=== PATIENT | female | born 1970 | race Two or more races ===

== ENCOUNTER 2016-04-27 22:10 | Emergency (ER) | payer OTHER ==
[2016-04-28] MEDS ORDERED: ONDANSETRON 4 MG TAB.RAPDIS PO ONE (01:49)
[2016-04-28] MEDS ORDERED: MECLIZINE HCL 25 MG TABLET PO ONE (01:49)
--- NOTE | 2016-04-28 01:52 | ER Document Report ---
ED General - General Chief Complaint: Dizziness Stated Complaint: DIZZINESS Time seen by provider: 01:50 Notes: Patient is a 45-year-old female that comes emergency department for chief complaint of an episode earlier where she felt suddenly lightheaded and slightly nauseated, she states that she sat down, lay down, and then the room seemed to be spinning around her. She denies any nausea vomiting, fever or chills, headache. She states she had this similar symptom years ago. Patient does report some recent congestion and even some irritation with her ears being plugged. Patient denies any daily medications, denies any other medical history other than tubal ligation. TRAVEL OUTSIDE OF THE [place] IN LAST 30 DAYS: No - Related Data Allergies/Adverse Reactions: No Known Allergies Allergy (Verified 01/29/14 19:22) Past Medical History - General Information source: Patient - Social History Smoking Status: Never Smoker Frequency of alcohol use: None Drug Abuse: None Lives with: Family Family History: Reviewed & Not Pertinent - Past Medical History Cardiac Medical History: Pulmonary Medical History: Endocrine Medical History: GI Medical History: Reports: Hx Gastroesophageal Reflux Disease Past Surgical History: Reports: Hx Tubal Ligation - Immunizations Hx Diphtheria, Pertussis, Tetanus Vaccination: No Review of Systems - Review of Systems Constitutional: No symptoms reported EENT: No symptoms reported Cardiovascular: No symptoms reported Respiratory: No symptoms reported Gastrointestinal: See HPI Genitourinary: No symptoms reported Female Genitourinary: No symptoms reported Musculoskeletal: No symptoms reported Skin: No symptoms reported Hematologic/Lymphatic: No symptoms reported Neurological/Psychological: See HPI Physical Exam - Vital signs Vitals: Temp Pulse BP Pulse Ox 97.8 F 97 123/86 H 100 04/27/16 23:34 04/27/16 23:34 04/27/16 23:34 04/27/16 23:34 Interpretation: Normal - General General appearance: Appears well, Alert In distress: None - Smiling and well-appearing, sitting up on the bed - HEENT Head: Normocephalic, Atraumatic Eyes: Normal Conjunctiva: Normal Extraocular movements intact: Yes Eyelashes: Normal Pupils: PERRL Ears: Normal External canal: Normal Tympanic membrane: Normal Sinus: Normal Nasal: Normal Mouth/Lips: Normal Mucous membranes: Normal Pharynx: Normal Neck: Normal - Respiratory Respiratory status: No respiratory distress Chest status: Nontender Breath sounds: Normal Chest palpation: Normal - Cardiovascular Rhythm: Regular Heart sounds: Normal auscultation Murmur: No - Abdominal Inspection: Normal Distension: No distension Bowel sounds: Normal Tenderness: Nontender Organomegaly: No organomegaly - Back Back: Normal, Nontender - Extremities General upper extremity: Normal inspection, Nontender, Normal color, Normal ROM , Normal temperature General lower extremity: Normal inspection, Nontender, Normal color, Normal ROM , Normal temperature, Normal weight bearing. 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 I discussed this with patient, offered to treat with Antivert for what sounds like intermittent vertigo, patient requested that laboratory studies be performed. These were performed, found to be unremarkable, patient was given a copy of her blood work and urine. Patient's was still given Antivert, patient instructed to follow-up with primary care and return for any concerning symptoms. Patient states understanding and agreement. - Vital Signs Vital signs: Temp Pulse Resp BP Pulse Ox 98.2 F 73 18 117/67 97 04/28/16 03:33 04/28/16 03:33 04/28/16 03:33 04/28/16 03:33 04/28/16 03:33 - Laboratory Result Diagrams: 04/28/16 02:00 04/28/16 02:00 Laboratory results interpreted by me: 04/28/16 02:00 Ur Leukocyte Esterase TRACE H Discharge - Discharge Clinical Impression: Vertigo Condition: Stable Disposition: HOME, SELF-CARE Additional Instructions: Your workup and examination do not show any concerning abnormalities. Take the Antivert as directed, take Zofran if needed for nausea, follow with primary care. Return to emergency department for any concerning or worsening symptoms. Prescriptions: Meclizine HCl [Antivert 25 mg Tablet] 25 mg PO TID PRN #21 tablet PRN Reason: Ondansetron [Zofran Odt 4 mg Tablet] 1 - 2 tab PO Q4H PRN #15 tab.rapdis PRN Reason: For Nausea/Vomiting
[2016-04-28 02:16] LABS: ABSOLUTE EOSINOPHILS # (AUTO) 0.1 10^3/uL (0.0-0.6); ABSOLUTE LYMPHOCYTES (AUTO) 2.8 10^3/uL (0.5-4.7); ABSOLUTE MONOCYTES (AUTO) 0.6 10^3/uL (0.1-1.4); ABSOLUTE NEUT (AUTO) 4.7 10^3/uL (1.7-8.2); BASOPHILS % (AUTO) 0.4 % (0-2); EOSINOPHILS % (AUTO) 0.7 % (0-6); HEMATOCRIT 38.7 % (36.0-47.0); HGB HCT DIFFERENCE 0.3; LYMPHOCYTES % (AUTO) 34.4 % (13-45); MEAN CORPUSCULAR HEMOGLOBIN 29.6 pg (27.0-33.4); MEAN CORPUSCULAR HGB CONC 33.6 g/dL (32.0-36.0); MEAN CORPUSCULAR VOLUME 88 fl (80-97); MONOCYTES % (AUTO) 7.3 % (3-13); RED BLOOD COUNT 4.39 10^6/uL (3.72-5.28); RED CELL DISTRIBUTION WIDTH 13.7 % (11.5-14.0); SEGMENTED NEUTROPHILS % (AUTO) 57.2 % (42-78); WHITE BLOOD COUNT 8.2 10^3/uL (4.0-10.5)
[2016-04-28 02:27] LABS: ALANINE AMINOTRANSFERASE 40 U/L (9-52); ALBUMIN 3.8 g/dL (3.5-5.0); ALKALINE PHOSPHATASE 54 U/L (38-126); ANION GAP 9 (5-19); ASPARTATE AMINO TRANSFERASE 24 U/L (14-36); BILIRUBIN,TOTAL 0.3 mg/dL (0.2-1.3); BLOOD UREA NITROGEN 14 mg/dL (7-20); CALCIUM 9.2 mg/dL (8.4-10.2); CARBON DIOXIDE 29 mmol/L (22-30); CHLORIDE 104 mmol/L (98-107); GLUCOSE 85 mg/dL (75-110); POTASSIUM 4.6 mmol/L (3.6-5.0); SODIUM 141.5 mmol/L (137-145); TOTAL PROTEIN 7.2 g/dL (6.3-8.2)
[2016-04-28 02:40] LABS: AMORPHOUS SEDIMENT,URINE TRACE /HPF; APPEARANCE,URINE SLIGHTLY-CLOUDY; BILIRUBIN,URINE NEGATIVE (NEGATIVE); GLUCOSE, URINE NEGATIVE (NEGATIVE); KETONES,URINE NEGATIVE (NEGATIVE); LEUKOCYTE ESTERASE,URINE TRACE (NEGATIVE); NITRITE,URINE NEGATIVE (NEGATIVE); PROTEIN,URINE NEGATIVE (NEGATIVE); URINE SPECIFIC GRAVITY 1.016; UROBILINOGEN,URINE NEGATIVE mg/dL (<2.0)
[2016-04-28 03:36] VITALS: BP 117/67
== END 2016-04-28 03:37 | disposition home or self-care (01) ==
LOC: ER 22:10
DX: R42 Dizziness and giddiness (principal); R11.0 Nausea
CPT/HCPCS: 99284; 36415; 85025; 81025; 80053; 81001; S0119

== ENCOUNTER 2016-07-08 00:19 | Emergency (ER) | payer OTHER ==
--- NOTE | 2016-07-08 06:08 | ER Document Report ---
ED General - General Chief Complaint: Cough, LUNA, Sneezing Stated Complaint: COUGHING,SNEEZING,HEADACHE Mode of Arrival: Ambulatory Information source: Patient Notes: 46 y/o F presents to ED c/o runny nose, cough, congestion, and sneezing over the last three days. Denies fever, n/v, chest pain, sob, difficulty breathing or swallowing. TRAVEL OUTSIDE OF THE [place] IN LAST 30 DAYS: No - HPI Onset/Duration: Persistent Quality of pain: No pain Severity: Mild Pain Level: Denies Associated symptoms: Nonproductive cough, Rhinnorhea Similar symptoms previously: Yes Recently seen / treated by doctor: No - Related Data Allergies/Adverse Reactions: No Known Allergies Allergy (Verified 01/29/14 19:22) Past Medical History - General Information source: Patient - Social History Smoking Status: Never Smoker Frequency of alcohol use: None Drug Abuse: None Lives with: Family Family History: Reviewed & Not Pertinent Patient has suicidal ideation: No Patient has homicidal ideation: No - Past Medical History Cardiac Medical History: Pulmonary Medical History: Endocrine Medical History: Renal/ Medical History: Denies: Hx Peritoneal Dialysis GI Medical History: Reports: Hx Gastroesophageal Reflux Disease Past Surgical History: Reports: Hx Tubal Ligation - Immunizations Hx Diphtheria, Pertussis, Tetanus Vaccination: Yes Review of Systems - Review of Systems Constitutional: No symptoms reported EENT: See HPI Cardiovascular: No symptoms reported Respiratory: See HPI Gastrointestinal: No symptoms reported Genitourinary: No symptoms reported Female Genitourinary: No symptoms reported Musculoskeletal: No symptoms reported Skin: No symptoms reported Hematologic/Lymphatic: No symptoms reported Neurological/Psychological: No symptoms reported -: Yes All other systems reviewed and negative Physical Exam - Vital signs Vitals: Temp Pulse Resp BP Pulse Ox 97.8 F 76 16 100/51 L 98 07/08/16 01:03 07/08/16 01:03 07/08/16 01:03 07/08/16 01:03 07/08/16 01:03 Interpretation: Normal - General General appearance: Appears well, Alert - HEENT Head: Normocephalic, Atraumatic Eyes: Normal Conjunctiva: Normal Extraocular movements intact: Yes Eyelashes: Normal Pupils: PERRL Ears: Normal External canal: Normal Tympanic membrane: Normal Sinus: Normal. No: Tenderness Nasal: Normal, Clear rhinorrhea. No: Purulent discharge Mouth/Lips: Normal Mucous membranes: Normal, Moist Pharynx: Normal. No: Blood in hypopharynx, Erythema, Exudate, Peritonsillar abscess, Post nasal drainage, Retropharyngeal abscess, Tonsillar hypertrophy, Uvular edema, Potential airway comprom., Other Neck: Normal. No: Anterior cervical chain, Posterior cervical chain, Lymphadenopathy, Meningismus, Subcutaneous emphysema - Respiratory Respiratory status: No respiratory distress. No: Labored, Tachypnea Chest status: Nontender Breath sounds: Normal - CTAB, Nonproductive cough. No: Rhonchi, Wheezing Chest palpation: Normal - Cardiovascular Rhythm: Regular Heart sounds: Normal auscultation Murmur: No Pulses: Normal: Radial Normal capillary refill: Yes - Abdominal Inspection: Normal Distension: No distension Bowel sounds: Normal Tenderness: Nontender Organomegaly: No organomegaly - Back Back: Normal, Nontender - Extremities General upper extremity: Normal inspection, Nontender, Normal color, Normal ROM , Normal temperature General lower extremity: Normal inspection, Nontender, Normal color, Normal ROM , Normal temperature, Normal weight bearing - Neurological Neuro grossly intact: Yes Cognition: Normal Orientation: AAOx4 Baljinder Coma Scale Eye Opening: Spontaneous [place] Coma Scale Verbal: Oriented Baljinder Coma Scale Motor: Obeys Commands Baljinder Coma Scale Total: 15 Speech: Normal Motor strength normal: LUE, RUE, LLE, RLE Sensory: Normal - Psychological Associated symptoms: Normal affect, Normal mood - Skin Skin Temperature: Warm Skin Moisture: Dry Skin Color: Normal Course - Re-evaluation Re-evalutation: 07/08/16 06:10 Patient hemodynamically stable, in no distress, afebrile, nontoxic, and appears well-hydrated. Physical exam is unremarkable suggestive of uncomplicated likely viral URI at this time. Will treat symptomatically and patient appears stable for discharge and agrees with home care, follow-up with PCP, and ED return precautions. - Vital Signs Vital signs: Temp Pulse Resp BP Pulse Ox 97.8 F 79 16 103/63 98 07/08/16 05:30 07/08/16 05:30 07/08/16 05:30 07/08/16 05:30 07/08/16 05:30 Discharge - Discharge Clinical Impression: URI (upper respiratory infection) Qualifiers: URI type: unspecified URI Qualified Code(s): J06.9 - Acute upper respiratory infection, unspecified Condition: Stable Disposition: HOME, SELF-CARE Additional Instructions: UPPER RESPIRATORY ILLNESS: You have a viral infection of the respiratory passages -- a "cold." This common infection causes nasal congestion, drainage, and often sore throat and cough. It is highly contagious. The disease usually lasts about 10 to 14 days. There is no "cure" for the viral infection -- it must run its course. If there is a complication, such as bacterial infection in the nose, sinuses, middle ear, or bronchial tubes, antibiotics may be required. The antibiotics won't affect the virus. Drink plenty of fluids. A humidifier may help. An expectorant medication or decongestant may make you more comfortable. Use acetaminophen or ibuprofen for fever or aches. See the doctor if fever persists over two days, if there is any significant worsening of your symptoms, or if you simply fail to improve as expected. DECONGESTANT MEDICATION: A decongestant medicine has been prescribed. Often this medicine is combined in the same tablet with an antihistamine or expectorant. This type of medicine is helpful in treating a bad cold or sinus condition, as well as in treatment of the nasal congestion of hay fever. It is not of much benefit for lung infections. Decongestant medicines are related to stimulants. They can cause an increase in blood pressure and heart rate. Persons with heart disease and high blood pressure should not take decongestants without discussing this with the physician. If you develop palpitations, chest pain, headache, or tremors, stop the medicine and consult your physician. COUGH-SUPPRESSANT & EXPECTORANT MEDICATION: You are to use a cough medication as needed for relief of symptoms. This medicine is a combination of an expectorant (to make the mucous thinner and more easily "coughed up") and a cough suppressant (to reduce the frequency of coughing). The cough-suppressant medicine is related to narcotics. You may experience mild nausea and sleepiness. Some patients who are very sensitive to narcotics may have stomach pain from this medicine. Taking the medicine with food reduces these side effects. Do not drive or work with machinery until you know how this medicine affects you. The expectorant should have no side effects. Iodine-containing expectorants (such as organidin) should not be taken by persons with active thyroid disease unless approved by your doctor. Call the doctor if you develop shortness of breath, hives, rash, itching, lightheadedness, or severe nausea and vomiting. USE OF ACETAMINOPHEN (Tylenol): Acetaminophen may be taken for pain relief or fever control. It's much safer than aspirin, offering a wider range of "safe" dosages. It is safe during . Some brand names are Tylenol, Panadol, Datril, Anacin 3, Tempra, and Liquiprin. Acetaminophen can be repeated every four hours. The following are maximum recommended dosages: >89 pounds or adults 650 mg to 900 mg Acetaminophen can be repeated every four hours. Maximum dose not to exceed 4000 mg a day. FOLLOW-UP CARE: Drink plenty of fluids. Follow-up with your primary care provider this week. Return to the emergency department for any worsening symptoms or concerns. Prescriptions: Guaifenesin/Dm/Pseudoephedrine [Guai 800/Pse 60/Dm 30 Tablet] 1 tab PO Q12HP PRN #6 tab.sr.12h PRN Reason: Forms: Return to Work
[2016-07-08 06:28] VITALS: BP 103/63
== END 2016-07-08 06:15 | disposition home or self-care (01) ==
LOC: ER 00:19
DX: J06.9 Acute upper respiratory infection, unspecified (principal); R05 Cough; R51 Headache; R06.7 Sneezing; R09.81 Nasal congestion
CPT/HCPCS: 99283

== ENCOUNTER 2016-10-01 23:26 | Emergency (ER) | payer OTHER ==
[2016-10-02] MEDS ORDERED: IBUPROFEN 600 MG TABLET PO ONE (01:22)
--- NOTE | 2016-10-02 01:25 | ER Document Report ---
ED General - General Chief Complaint: Ear Pain Stated Complaint: EAR PAIN Time Seen by Provider: 10/02/16 00:55 Notes: Patient is a 46-year-old female with past medical history who presents with 2 days of bilateral ear pain and bilateral sinus pressure. The pain is described as a dull, constant, aching pain to the bilateral ears. No associated rhinorrhea and sore throat. She has not seen her primary care doctor regarding today's concerns. Nothing improves or worsens her symptoms. She denies any fever, headache, neck pain altered mental status. TRAVEL OUTSIDE OF THE [place] IN LAST 30 DAYS: No - Related Data Allergies/Adverse Reactions: No Known Allergies Allergy (Verified 01/29/14 19:22) Past Medical History - General Information source: Patient - Social History Smoking Status: Never Smoker Chew tobacco use (# tins/day): No Frequency of alcohol use: None Drug Abuse: None Lives with: Spouse/Significant other Family History: Reviewed & Not Pertinent Patient has suicidal ideation: No Patient has homicidal ideation: No - Past Medical History Cardiac Medical History: Pulmonary Medical History: Endocrine Medical History: Renal/ Medical History: Denies: Hx Peritoneal Dialysis GI Medical History: Reports: Hx Gastroesophageal Reflux Disease Past Surgical History: Reports: Hx Tubal Ligation - Immunizations Hx Diphtheria, Pertussis, Tetanus Vaccination: Yes Review of Systems - Review of Systems Notes: Constitutional: Negative for fever. HENT: Positive for bilateral ear pain and sinus pressure Eyes: Negative for visual changes. Cardiovascular: Negative for chest pain. Respiratory: Negative for shortness of breath. Gastrointestinal: Negative for abdominal pain, vomiting or diarrhea. Genitourinary: Negative for dysuria. Musculoskeletal: Negative for back pain. Skin: Negative for rash. Neurological: Negative for headaches, weakness or numbness. 10 point ROS negative except as marked above and in HPI. Physical Exam - Vital signs Vitals: Temp Pulse Resp BP Pulse Ox 97.6 F 70 16 115/52 L 99 10/01/16 23:31 10/01/16 23:31 10/01/16 23:31 10/01/16 23:31 10/01/16 23:31 Interpretation: Normal Notes: PHYSICAL EXAMINATION: GENERAL: Well-appearing, well-nourished and in no acute distress. HEAD: Atraumatic, normocephalic. EYES: Pupils equal round and reactive to light, extraocular movements intact, sclera anicteric, conjunctiva are normal. ENT: nares patent, oropharynx clear without exudates. Moist mucous membranes. NECK: Normal range of motion, supple without lymphadenopathy LUNGS: Breath sounds clear to auscultation bilaterally and equal. No wheezes rales or rhonchi. HEART: Regular rate and rhythm without murmurs ABDOMEN: Soft, nontender, normoactive bowel sounds. No guarding, no rebound. No masses appreciated. EXTREMITIES: Normal range of motion, no pitting or edema. No cyanosis. NEUROLOGICAL: No focal neurological deficits. Moves all extremities spontaneously and on command. PSYCH: Normal mood, normal affect. SKIN: Warm, Dry, normal turgor, no rashes or lesions noted. Course - Re-evaluation Re-evalutation: 10/02/16 01:22 Patient presents with bilateral sinus pressure and bilateral ear pain with an associated sore throat. Presentation is most consistent with a viral upper respiratory infection. Patient is overall well appearance, vitals within normal limits, well-hydrated. Patient denies any headache, neck pain, and has no evidence of meningismus on examination. Lungs are clear bilaterally. No evidence of respiratory distress. Based on clinical exam and history, I do not suspect an acute pneumonia, meningitis, strep pharyngitis, or an acute encephalitis. No laboratory or imaging testing is indicated at this time. Will discharge patient with return precautions and followup recommendations. They are in agreement this plan have verbalized understanding return precautions. - Vital Signs Vital signs: Temp Pulse Resp BP Pulse Ox 97.6 F 73 20 110/84 100 10/01/16 23:31 10/02/16 01:50 10/02/16 01:50 10/02/16 01:50 10/02/16 01:50 Discharge - Discharge Clinical Impression: Upper respiratory infection Qualifiers: URI type: unspecified URI Qualified Code(s): J06.9 - Acute upper respiratory infection, unspecified Condition: Good Disposition: HOME, SELF-CARE Additional Instructions: Your symptoms are most likely due to a viral infection it should resolve over the next 7-14 days. You should take [id number] guanfacine per bottle instructions to help thin the mucus. For nasal congestion: I would recommend that you get [id number] oxymetazoline also known is afrin. Use only per bottle instructions and be sure to never use this for more than 3 days if you can develop severe rebound congestion. You may also use tylenol or ibuprofen as needed for aches and thorat discomfort. Please be sure to drink plenty of fluids and get rest. Return to the emergency department he began having difficulty breathing, chest pain, persistent vomiting, or any other symptoms that are concerning to you.
[2016-10-02 01:52] VITALS: BP 110/84
== END 2016-10-02 01:50 | disposition home or self-care (01) ==
LOC: ER 23:26
DX: J06.9 Acute upper respiratory infection, unspecified (principal); H92.03 Otalgia, bilateral
CPT/HCPCS: 99282

== ENCOUNTER 2016-10-28 18:28 | Emergency (ER) | payer OTHER ==
[2016-10-28] MEDS ORDERED: LIDOCAINE 2% VISCOUS SOLN 20 ML UDCUP PO ONE (20:37)
[2016-10-28] MEDS ORDERED: MAG HYDROX/AL HYDROX/SIMETH SUSP 30 ML UDCUP PO ONE (20:37)
--- NOTE | 2016-10-28 20:40 | ER Document Report ---
ED Medical Screen (RME) - General Chief Complaint: Dizziness Stated Complaint: DIZZY,SHORT OF BREATH Time Seen by Provider: 10/28/16 20:34 Notes: 46-year-old female patient comes emergency room complaining of feeling dizzy at 3:30 PM, but states it is "way better now". She also complains of reflux, occasionally takes some antacids. No PPIs or H2 blockers for this. She has been seen here many times for the reflux problem, reviewing records shows presenting complaints had been shortness of breath on some occasions, chest pain on others with the discharge diagnosis of reflux. I have greeted and performed a rapid initial assessment of this patient. A comprehensive ED assessment and evaluation of the patient, analysis of test results and completion of the medical decision making process will be conducted by additional ED providers. TRAVEL OUTSIDE OF THE [place] IN LAST 30 DAYS: No - Related Data Allergies/Adverse Reactions: No Known Allergies Allergy (Verified 01/29/14 19:22) Past Medical History - Past Medical History Cardiac Medical History: Pulmonary Medical History: Endocrine Medical History: Renal/ Medical History: Denies: Hx Peritoneal Dialysis GI Medical History: Reports: Hx Gastroesophageal Reflux Disease Past Surgical History: Reports: Hx Tubal Ligation - Immunizations Hx Diphtheria, Pertussis, Tetanus Vaccination: Yes Physical Exam - Vital signs Vitals: Temp Pulse Resp BP Pulse Ox 97.5 F 87 13 107/72 99 10/28/16 18:40 10/28/16 18:40 10/28/16 18:40 10/28/16 18:40 10/28/16 18:40 Course - Vital Signs Vital signs: Temp Pulse Resp BP Pulse Ox 97.5 F 87 13 107/72 99 10/28/16 18:40 10/28/16 18:40 10/28/16 18:40 10/28/16 18:40 10/28/16 18:40
--- NOTE | 2016-10-28 22:17 | ER Document Report ---
ED General - General Chief Complaint: Dizziness Stated Complaint: DIZZY,SHORT OF BREATH Time Seen by Provider: 10/28/16 20:34 Mode of Arrival: Ambulatory Information source: Patient TRAVEL OUTSIDE OF THE [place] IN LAST 30 DAYS: No - HPI Onset: This afternoon Onset/Duration: Sudden Quality of pain: Burning, Other - TIGHTNESS Severity: Moderate Associated symptoms: None. denies: Chest pain, Nausea, Shortness of breath, Sweating Exacerbated by: Denies Relieved by: Antacids - GIVEN IN RME Similar symptoms previously: No Recently seen / treated by doctor: No - Related Data Allergies/Adverse Reactions: No Known Allergies Allergy (Verified 01/29/14 19:22) Past Medical History - General Information source: Patient - Social History Smoking Status: Never Smoker Cigarette use (# per day): No Chew tobacco use (# tins/day): No Frequency of alcohol use: None Drug Abuse: None Lives with: Spouse/Significant other Family History: Reviewed & Not Pertinent Patient has suicidal ideation: No Patient has homicidal ideation: No - Past Medical History Cardiac Medical History: Reports: None Pulmonary Medical History: Reports: None EENT Medical History: Reports: None Neurological Medical History: Reports: None Endocrine Medical History: Reports: None Renal/ Medical History: Reports: None. Denies: Hx Peritoneal Dialysis Malignancy Medical History: Reports: None GI Medical History: Reports: Hx Gastroesophageal Reflux Disease Musculoskeltal Medical History: Reports None Psychiatric Medical History: Reports: None Past Surgical History: Reports: Hx Tubal Ligation - Immunizations Hx Diphtheria, Pertussis, Tetanus Vaccination: Yes Review of Systems - Review of Systems Constitutional: No symptoms reported EENT: No symptoms reported Cardiovascular: No symptoms reported Respiratory: No symptoms reported Gastrointestinal: See HPI Genitourinary: No symptoms reported Female Genitourinary: denies: Musculoskeletal: No symptoms reported Skin: No symptoms reported Neurological/Psychological: No symptoms reported Physical Exam - Vital signs Vitals: Temp Pulse Resp BP Pulse Ox 97.5 F 87 13 107/72 99 10/28/16 18:40 10/28/16 18:40 10/28/16 18:40 10/28/16 18:40 10/28/16 18:40 Interpretation: Normal. No: Tachycardic, Hypoxic, Tachypneic - General General appearance: Appears well, Alert In distress: None - HEENT Head: Normocephalic Eyes: Normal Conjunctiva: Normal Ears: Normal Nasal: Normal Mouth/Lips: Normal Mucous membranes: Normal - Respiratory Respiratory status: No respiratory distress Breath sounds: Normal - Cardiovascular Rhythm: Regular Heart sounds: Normal auscultation Murmur: No - Abdominal Inspection: Normal Bowel sounds: Normal Tenderness: Nontender - Extremities General upper extremity: Normal inspection General lower extremity: Normal inspection - Neurological Neuro grossly intact: Yes Cognition: Normal Orientation: AAOx4 - Psychological Associated symptoms: Normal affect, Normal mood - Skin Skin Temperature: Warm Skin Moisture: Dry Skin Color: Normal Skin Turgor: Elastic Course - Vital Signs Vital signs: Temp Pulse Resp BP Pulse Ox 97.5 F 87 13 107/72 99 10/28/16 18:40 10/28/16 18:40 10/28/16 18:40 10/28/16 18:40 10/28/16 18:40 Discharge - Discharge Clinical Impression: Esophageal reflux disease Qualifiers: Esophagitis presence: esophagitis presence not specified Qualified Code(s): K21.9 - Gastro-esophageal reflux disease without esophagitis Condition: Stable Disposition: HOME, SELF-CARE Instructions: Reflux Disease (GERD) ([facility]), Antacid Therapy ([facility]) Additional Instructions: BLAND DIET, AVOID GREASY OR SPICY FOODS. AVOID DRINKING CARBONATED DRINKS UNTIL YOUR SYMPTOMS IMPROVE. TAKE A DOSE OF ANTACID IF YOU FEEL SYMPTOMS STARTING TO RECUR. FOLLOW UP WITH YOUR PRIMARY CARE PROVIDER OR RETURN TO E.R. IF PROBLEMS.
[2016-10-28 22:47] VITALS: BP 110/70
== END 2016-10-28 22:45 | disposition home or self-care (01) ==
LOC: ER 18:28
DX: K21.9 Gastro-esophageal reflux disease without esophagitis (principal); R42 Dizziness and giddiness; R06.02 Shortness of breath
CPT/HCPCS: 99283; J3490

== ENCOUNTER 2017-04-09 09:34 | Emergency (ER) | payer OTHER ==
[2017-04-09] MEDS ORDERED: METOCLOPRAMIDE HCL ORAL SOLN 10 MG/10 ML UDCUP PO ONE (09:56)
[2017-04-09] MEDS ORDERED: MAG HYDROX/AL HYDROX/SIMETH SUSP 30 ML UDCUP PO ONE (09:56)
[2017-04-09] MEDS ORDERED: LIDOCAINE 2% VISCOUS SOLN 20 ML UDCUP PO ONE (09:56)
--- NOTE | 2017-04-09 10:56 | ER Document Report ---
ED General - General Chief Complaint: Epigastric Pain Stated Complaint: ABDOMINAL PAIN Time Seen by Provider: 04/09/17 09:51 Mode of Arrival: Ambulatory Information source: Patient Notes: 46 yr old female with hx of epigastric pain , gerd presents with complaints of epigastric pain. pt denies any fevers or chills, denies any nausea or vomiting. pt states that she was on a pill for years which helped but she moved here and has not been on anything. Pt states there is no chest pain, no sob, last endoscopy was 2008 TRAVEL OUTSIDE OF THE [place] IN LAST 30 DAYS: No - HPI Onset: Other - daily pain for years Onset/Duration: Persistent Quality of pain: Burning Severity: Mild Pain Level: 1 Associated symptoms: Other Exacerbated by: Other - not eating Relieved by: Denies Similar symptoms previously: Yes Recently seen / treated by doctor: Yes - Related Data Allergies/Adverse Reactions: No Known Allergies Allergy (Verified 04/09/17 09:34) Past Medical History - Social History Smoking Status: Never Smoker Cigarette use (# per day): No Chew tobacco use (# tins/day): No Smoking Education Provided: No Frequency of alcohol use: None Drug Abuse: None Family History: Reviewed & Not Pertinent Patient has suicidal ideation: No Patient has homicidal ideation: No - Past Medical History Cardiac Medical History: Pulmonary Medical History: Endocrine Medical History: Renal/ Medical History: Denies: Hx Peritoneal Dialysis GI Medical History: Reports: Hx Gastroesophageal Reflux Disease Past Surgical History: Reports: Hx Tubal Ligation - Immunizations Hx Diphtheria, Pertussis, Tetanus Vaccination: Yes Review of Systems - Review of Systems Notes: REVIEW OF SYSTEMS: CONSTITUTIONAL : Denies fever, chills, or sweats. Denies recent illness. EENT: Denies eye, ear, throat, or mouth pain or symptoms. Denies nasal or sinus congestion or discharge. Denies throat, tongue, or mouth swelling or difficulty swallowing. CARDIOVASCULAR: Denies chest pain. Denies palpitations or racing or irregular heart beat. Denies ankle edema. RESPIRATORY: Denies cough, cold, or chest congestion. Denies shortness of breath, difficulty breathing, or wheezing. GASTROINTESTINAL: admits to epigastric pain GENITOURINARY: Denies difficulty urinating, painful urination, burning, frequency, blood in urine, or discharge. FEMALE GENITOURINARY: Denies vaginal bleeding, heavy or abnormal periods, irregular periods. Denies vaginal discharge or odor. MUSCULOSKELETAL: Denies back or neck pain or stiffness. Denies joint pain or swelling. SKIN: Denies rash, lesions or sores. HEMATOLOGIC : Denies easy bruising or bleeding. LYMPHATIC: Denies swollen, enlarged glands. NEUROLOGICAL: Denies confusion or altered mental status. Denies passing out or loss of consciousness. Denies dizziness or lightheadedness. Denies headache. Denies weakness or paralysis or loss of use of either side. Denies problems with gait or speech. Denies sensory loss, numbness, or tingling. Denies seizures. PSYCHIATRIC: Denies anxiety or stress. Denies depression, suicidal ideation, or homicidal ideation. ALL OTHER SYSTEMS REVIEWED AND NEGATIVE. PHYSICAL EXAMINATION: GENERAL: Well-appearing, well-nourished and in no acute distress. HEAD: Atraumatic, normocephalic. EYES: Pupils equal round and reactive to light, extraocular movements intact, conjunctiva are normal. ENT: Nares patent, oropharynx clear without exudates. Moist mucous membranes. NECK: Normal range of motion, supple without lymphadenopathy LUNGS: Breath sounds clear to auscultation bilaterally and equal. No wheezes rales or rhonchi. HEART: Regular rate and rhythm without murmurs ABDOMEN: Soft, epigastric pain mild no rebound or guarding Female : deferred Musculoskeletal: Normal range of motion, no pitting or edema. No cyanosis. NEUROLOGICAL: Cranial nerves grossly intact. Normal speech, normal gait. Normal sensory, motor exams PSYCH: Normal mood, normal affect. SKIN: Warm, Dry, normal turgor, no rashes or lesions noted. Dictation was performed using [employer] voice recognition software Physical Exam - Vital signs Vitals: Temp Pulse Resp BP Pulse Ox 98.1 F 87 13 116/68 100 04/09/17 09:38 04/09/17 09:38 04/09/17 09:38 04/09/17 09:38 04/09/17 09:38 Course - Re-evaluation Re-evalutation: 04/09/17 11:02 pts symptoms compeltely resolved with GI cocktail, she denies any chest pain, ekg was normal, pt states pain is constant After performing a Medical Screening Examination, I estimate there is LOW risk for RUPTURED ESOPHAGUS, PNEUMOTHORAX, PULMONARY EMBOLISM, ACUTE CORONARY SYNDROME, OR THORACIC AORTIC DISSECTION, thus I consider the discharge disposition reasonable. I have reevaluated this patient multiple times and no significant life threatening changes are noted. The patient and I have discussed the diagnosis and risks, and we agree with discharging home with close follow-up. We also discussed returning to the Emergency Department immediately if new or worsening symptoms occur. We have discussed the symptoms which are most concerning (e.g., bloody sputum, worsening pain or shortness of breath) that necessitate immediate return. - Vital Signs Vital signs: Temp Pulse Resp BP Pulse Ox 98.1 F 87 13 116/68 100 04/09/17 09:38 04/09/17 09:38 04/09/17 09:38 04/09/17 09:38 04/09/17 09:38 Discharge - Discharge Clinical Impression: Epigastric pain GERD (gastroesophageal reflux disease) Qualifiers: Esophagitis presence: with esophagitis Qualified Code(s): K21.0 - Gastro- esophageal reflux disease with esophagitis Condition: Stable Disposition: HOME, SELF-CARE Instructions: Abdominal Pain ([facility]) Prescriptions: Famotidine [Pepcid 20 mg Tablet] 20 mg PO DAILY #90 tablet Referrals: DANIEL CASTAÑEDA MD [ACTIVE STAFF] - Follow up in 3-5 days
[2017-04-09 11:11] VITALS: BP 106/62
--- NOTE | 2017-04-09 13:43 | EKG REPORT ---
SEVERITY:- NORMAL ECG - SINUS RHYTHM : Confirmed by: Kory Diallo 09-Apr-2017 13:43:03
== END 2017-04-09 11:14 | disposition home or self-care (01) ==
LOC: ER 09:34
DX: K21.0 Gastro-esophageal reflux disease with esophagitis (principal); R10.13 Epigastric pain
CPT/HCPCS: 93005; 99284; 93010; J3490

== ENCOUNTER 2017-07-03 18:00 | Emergency (ER) | payer OTHER ==
--- NOTE | 2017-07-03 18:34 | ER Document Report ---
ED Medical Screen (RME) - General Chief Complaint: Nonproductive Cough Stated Complaint: COUGH Time Seen by Provider: 07/03/17 18:32 Mode of Arrival: Ambulatory Information source: Patient TRAVEL OUTSIDE OF THE [place] IN LAST 30 DAYS: No - HPI Patient complains to provider of: cough Onset: Other - pt. with productive cough and fever for the past few days. Is a non-smoker - Related Data Allergies/Adverse Reactions: No Known Allergies Allergy (Verified 07/03/17 18:32) Past Medical History - Social History Chew tobacco use (# tins/day): No Frequency of alcohol use: None Drug Abuse: None - Past Medical History Cardiac Medical History: Pulmonary Medical History: Endocrine Medical History: Renal/ Medical History: Denies: Hx Peritoneal Dialysis GI Medical History: Reports: Hx Gastroesophageal Reflux Disease Past Surgical History: Reports: Hx Tubal Ligation - Immunizations Hx Diphtheria, Pertussis, Tetanus Vaccination: Yes Physical Exam - Vital signs Vitals: Temp Pulse Resp BP Pulse Ox 99.3 F 96 16 118/66 97 07/03/17 18:11 07/03/17 18:11 07/03/17 18:11 07/03/17 18:11 07/03/17 18:11 Course - Vital Signs Vital signs: Temp Pulse Resp BP Pulse Ox 99.3 F 96 16 118/66 97 07/03/17 18:11 07/03/17 18:11 07/03/17 18:11 07/03/17 18:11 07/03/17 18:11
[2017-07-03 19:00] LABS: ABSOLUTE EOSINOPHILS # (AUTO) 0.1 10^3/uL (0.0-0.6); ABSOLUTE LYMPHOCYTES (AUTO) 1.9 10^3/uL (0.5-4.7); ABSOLUTE MONOCYTES (AUTO) 1.2 10^3/uL (0.1-1.4); ABSOLUTE NEUT (AUTO) 5.5 10^3/uL (1.7-8.2); BASOPHILS % (AUTO) 0.4 % (0-2); EOSINOPHILS % (AUTO) 1.2 % (0-6); HEMATOCRIT 36.7 % (36.0-47.0); HEMOGLOBIN 12.2 g/dL (12.0-15.5); LYMPHOCYTES % (AUTO) 21.6 % (13-45); MEAN CORPUSCULAR HEMOGLOBIN 29.6 pg (27.0-33.4); MEAN CORPUSCULAR HGB CONC 33.2 g/dL (32.0-36.0); MEAN CORPUSCULAR VOLUME 89 fl (80-97); MONOCYTES % (AUTO) 13.5 % (3-13); PLATELET COUNT 221 10^3/uL (150-450); RED BLOOD COUNT 4.12 10^6/uL (3.72-5.28); RED CELL DISTRIBUTION WIDTH 13.7 % (11.5-14.0); SEGMENTED NEUTROPHILS % (AUTO) 63.3 % (42-78); TOTAL CELLS COUNTED % (AUTO) 100 %; WHITE BLOOD COUNT 8.7 10^3/uL (4.0-10.5)
--- NOTE | 2017-07-03 19:09 | RADIOLOGY REPORT (SQ) ---
EXAM DESCRIPTION: CHEST PA/LAT COMPLETED DATE/TIME: 07/03/2017 6:58 pm REASON FOR STUDY: cough, fever COMPARISON: 720 14 EXAM PARAMETERS: NUMBER OF VIEWS: two views TECHNIQUE: Digital Frontal and Lateral radiographic views of the chest acquired. RADIATION DOSE: NA LIMITATIONS: none FINDINGS: LUNGS AND PLEURA: No opacities, masses or pneumothorax. No pleural effusion. MEDIASTINUM AND HILAR STRUCTURES: No masses or contour abnormalities. HEART AND VASCULAR STRUCTURES: Heart normal size. No evidence for failure. BONES: No acute findings. HARDWARE: None in the chest. OTHER: No other significant finding. IMPRESSION: NO SIGNIFICANT RADIOGRAPHIC FINDING IN THE CHEST. TECHNICAL DOCUMENTATION: JOB ID: [id number] [employer]- All Rights Reserved Reading location - IP/workstation name: [email or web address]
[2017-07-03 19:19] LABS: ALANINE AMINOTRANSFERASE 29 U/L (9-52); ALBUMIN 3.8 g/dL (3.5-5.0); ALKALINE PHOSPHATASE 54 U/L (38-126); ANION GAP 9 (5-19); ASPARTATE AMINO TRANSFERASE 15 U/L (14-36); BILIRUBIN,DIRECT 0.2 mg/dL (0.0-0.4); BILIRUBIN,TOTAL 0.2 mg/dL (0.2-1.3); BLOOD UREA NITROGEN 16 mg/dL (7-20); CALCIUM 9.2 mg/dL (8.4-10.2); CARBON DIOXIDE 28 mmol/L (22-30); CHLORIDE 106 mmol/L (98-107); GLUCOSE 85 mg/dL (75-110); POTASSIUM 4.1 mmol/L (3.6-5.0); SODIUM 142.9 mmol/L (137-145); TOTAL PROTEIN 6.9 g/dL (6.3-8.2)
[2017-07-03] MEDS ORDERED: GUAIFENESIN 600 MG TABLET.SA PO ONE (19:38)
[2017-07-03] MEDS ORDERED: PSEUDOEPHEDRINE HCL 30 MG TABLET PO ONE (19:38)
[2017-07-03] MEDS ORDERED: LORATADINE 10 MG TABLET PO ONE (19:38)
[2017-07-03] MEDS ORDERED: IBUPROFEN 600 MG TABLET PO ONE (19:38)
--- NOTE | 2017-07-03 19:43 | ER Document Report ---
ED Respiratory Problem - General Chief Complaint: Nonproductive Cough Stated Complaint: COUGH Time Seen by Provider: 07/03/17 18:32 Mode of Arrival: Ambulatory Information source: Patient Notes: 47-year-old female presents to ED for cough cold congestion fever for the past few days. She patient is a non-smoker. She does have a runny nose. TRAVEL OUTSIDE OF THE [place] IN LAST 30 DAYS: No - HPI Patient complains to provider of: Cough Onset: Other - Past couple days Duration: Continuous Initiating Event: URI Quality of pain: Achy Severity: Moderate Pain Level: 4 Cough: Nonproductive Sputum amount: None Associated symptoms: Cough, PND, Runny nose, Sinus pain/pressure, Short of breath Similar symptoms previously: Yes Recently seen / treated by doctor: No - Related Data Allergies/Adverse Reactions: No Known Allergies Allergy (Verified 07/03/17 18:32) Past Medical History - General Information source: Patient - Social History Smoking Status: Never Smoker Cigarette use (# per day): No Chew tobacco use (# tins/day): No Smoking Education Provided: No Frequency of alcohol use: None Drug Abuse: None Lives with: Family Family History: Reviewed & Not Pertinent Patient has suicidal ideation: No Patient has homicidal ideation: No - Past Medical History Cardiac Medical History: Reports: None Pulmonary Medical History: Reports: None EENT Medical History: Reports: None Neurological Medical History: Reports: None Endocrine Medical History: Reports: None Renal/ Medical History: Reports: None Malignancy Medical History: Reports: None GI Medical History: Reports: Hx Gastroesophageal Reflux Disease Musculoskeltal Medical History: Reports None Skin Medical History: Reports None Psychiatric Medical History: Reports: None Traumatic Medical History: Reports: None Infectious Medical History: Reports: None Past Surgical History: Reports: Hx Tubal Ligation - Immunizations Hx Diphtheria, Pertussis, Tetanus Vaccination: Yes Review of Systems - Review of Systems Constitutional: Fever, Recent illness EENT: Nose congestion, Nose discharge, Sinus pressure, Sinus discharge Cardiovascular: No symptoms reported Respiratory: Cough Gastrointestinal: No symptoms reported Genitourinary: No symptoms reported Female Genitourinary: No symptoms reported Musculoskeletal: No symptoms reported Skin: No symptoms reported Hematologic/Lymphatic: No symptoms reported Neurological/Psychological: No symptoms reported -: Yes All other systems reviewed and negative Physical Exam - Vital signs Vitals: Temp Pulse Resp BP Pulse Ox 99.3 F 96 16 118/66 97 07/03/17 18:11 07/03/17 18:11 07/03/17 18:11 07/03/17 18:11 07/03/17 18:11 Interpretation: Normal - General General appearance: Appears well, Alert - HEENT Head: Normocephalic, Atraumatic Eyes: Normal Pupils: PERRL Ears: Normal External canal: Normal Tympanic membrane: Normal Sinus: Normal Nasal: Purulent discharge, Swelling Mouth/Lips: Normal Mucous membranes: Normal Pharynx: Post nasal drainage Neck: Normal - Respiratory Respiratory status: No respiratory distress Chest status: Nontender Breath sounds: Normal Chest palpation: Normal - Cardiovascular Rhythm: Regular Heart sounds: Normal auscultation Murmur: No - Abdominal Inspection: Normal Distension: No distension Bowel sounds: Normal Tenderness: Nontender Organomegaly: No organomegaly - Back Back: Normal, Nontender - Extremities General upper extremity: Normal inspection, Nontender, Normal color, Normal ROM , Normal temperature General lower extremity: Normal inspection, Nontender, Normal color, Normal ROM , Normal temperature, Normal weight bearing. No: Tre's sign - Neurological Neuro grossly intact: Yes Cognition: Normal Orientation: AAOx4 Baljinder Coma Scale Eye Opening: Spontaneous Baljinder Coma Scale Verbal: Oriented Baljinder Coma Scale Motor: Obeys Commands [place] Coma Scale Total: 15 Speech: Normal Motor strength normal: LUE, RUE, LLE, RLE Sensory: Normal - Psychological Associated symptoms: Normal affect, Normal mood - Skin Skin Temperature: Warm Skin Moisture: Dry Skin Color: Normal Course - Re-evaluation Re-evalutation: 07/04/17 01:25 Patient treated with Claritin, Sudafed, Mucinex, and ibuprofen. Patient was instructed on use of these medications at home. Patient was also instructed on use of Flonase. Patient to follow-up with primary doctor. - Vital Signs Vital signs: Temp Pulse Resp BP Pulse Ox 98.6 F 96 18 99/64 L 97 07/03/17 20:11 07/03/17 20:11 07/03/17 20:11 07/03/17 20:11 07/03/17 20:11 - Laboratory Result Diagrams: 07/03/17 18:40 07/03/17 18:40 Laboratory results interpreted by me: 07/03/17 18:40 Monocytes % 13.5 H - Diagnostic Test Radiology reviewed: Image reviewed, Reports reviewed Discharge - Discharge Clinical Impression: URI (upper respiratory infection) Qualifiers: URI type: unspecified URI Qualified Code(s): J06.9 - Acute upper respiratory infection, unspecified Condition: Stable Disposition: HOME, SELF-CARE Instructions: Family Physicians / Practices Additional Instructions: UPPER RESPIRATORY ILLNESS: You have a viral infection of the respiratory passages -- a "cold." This common infection causes nasal congestion, drainage, and often sore throat and cough. It is highly contagious. The disease usually lasts about 10 to 14 days. There is no "cure" for the viral infection -- it must run its course. If there is a complication, such as bacterial infection in the nose, sinuses, middle ear, or bronchial tubes, antibiotics may be required. The antibiotics won't affect the virus. Drink plenty of fluids. A humidifier may help. An expectorant medication or decongestant may make you more comfortable. Use acetaminophen or ibuprofen for fever or aches. See the doctor if fever persists over two days, if there is any significant worsening of your symptoms, or if you simply fail to improve as expected. DECONGESTANT MEDICATION: A decongestant medicine has been suggested. Often this medicine is combined in the same tablet with an antihistamine or expectorant. This type of medicine is helpful in treating a bad cold or sinus condition, as well as in treatment of the nasal congestion of hay fever. It is not of much benefit for lung infections. Decongestant medicines are related to stimulants. They can cause an increase in blood pressure and heart rate. Persons with heart disease and high blood pressure should not take decongestants without discussing this with the physician. If you develop palpitations, chest pain, headache, or tremors, stop the medicine and consult your physician. COUGH-SUPPRESSANT & EXPECTORANT MEDICATION: You are to use a cough medication as needed for relief of symptoms. This medicine is a combination of an expectorant (to make the mucous thinner and more easily "coughed up") and a cough suppressant (to reduce the frequency of coughing). The cough-suppressant medicine is related to narcotics. You may experience mild nausea and sleepiness. Some patients who are very sensitive to narcotics may have stomach pain from this medicine. Taking the medicine with food reduces these side effects. Do not drive or work with machinery until you know how this medicine affects you. The expectorant should have no side effects. Iodine-containing expectorants (such as organidin) should not be taken by persons with active thyroid disease unless approved by your doctor. Call the doctor if you develop shortness of breath, hives, rash, itching, lightheadedness, or severe nausea and vomiting. USE OF ACETAMINOPHEN (Tylenol): Acetaminophen may be taken for pain relief or fever control. It's much safer than aspirin, offering a wider range of "safe" dosages. It is safe during . Some brand names are Tylenol, Panadol, Datril, Anacin 3, Tempra, and Liquiprin. Acetaminophen can be repeated every four hours. The following are maximum recommended dosages: >89 pounds or adults 650 mg to 900 mg Acetaminophen can be repeated every four hours. Maximum dose not to exceed 4000 mg a day. You will treated with Claritin 10 mg, Sudafed 30 mg, Mucinex 600 mg, and ibuprofen 600 mg, for your cough and cold congestion. You were also opted to use Flonase as per package instruction for your cough and cold symptoms. Your chest x-ray and labs were negative for any acute changes. FOLLOW-UP CARE: If you have been referred to a physician for follow-up care, call the physician s office for an appointment as you were instructed or within the next two days. If you experience worsening or a significant change in your symptoms, notify the physician immediately or return to the Emergency Department at any time for re-evaluation. Forms: Return to Work
[2017-07-03 20:27] VITALS: BP 99/64
== END 2017-07-03 20:28 | disposition home or self-care (01) ==
LOC: ER 18:00
DX: J06.9 Acute upper respiratory infection, unspecified (principal); R05 Cough; R09.82 Postnasal drip; J34.89 Other specified disorders of nose and nasal sinuses; R06.02 Shortness of breath; R09.81 Nasal congestion
CPT/HCPCS: 36415; 71046; 80053; 85025; 99283

== ENCOUNTER 2018-04-25 09:00 | Emergency (ER) | payer SELFPAY ==
[2018-04-25 09:08] VITALS: BP 106/69
[2018-04-25] MEDS ORDERED: LIDOCAINE 1% INJ-PF (10 MG/ML) 30 ML SDV INJ ONE (09:29)
[2018-04-25] MEDS ORDERED: DIPH/PERTUSS(ACELL)/TETANUS VAC/PF 0.5 ML SYR (>=10YO) IM ONE (09:41)
--- NOTE | 2018-04-25 09:43 | ER Document Report ---
HPI - HPI Patient complains to provider of: laceration Time Seen by Provider: 04/25/18 09:24 Onset: This morning Onset/Duration: Sudden Severity: Moderate Pain Level: 3 Context: Patient presents to emergency department with a laceration to her left dorsal foot. Patient reports she was carrying a grill scraper when it fell and landed on the top of her foot. Patient was wearing socks but not shoes. No other complaints. Associated Symptoms: None Exacerbated by: Denies Relieved by: Denies - REPRODUCTIVE Reproductive: DENIES: : Past Medical History - General Information source: Patient Last Menstrual Period: nov - Social History Smoking Status: Never Smoker Chew tobacco use (# tins/day): No Frequency of alcohol use: None Drug Abuse: None Occupation: [employer] Lives with: Family Family History: Reviewed & Not Pertinent Patient has suicidal ideation: No Patient has homicidal ideation: No - Medical History Medical History: Negative - Past Medical History Cardiac Medical History: Pulmonary Medical History: Endocrine Medical History: Renal/ Medical History: Denies: Hx Peritoneal Dialysis GI Medical History: Reports: Hx Gastroesophageal Reflux Disease Past Surgical History: Reports: Hx Tubal Ligation - Immunizations Hx Diphtheria, Pertussis, Tetanus Vaccination: Yes Vertical Provider Document - CONSTITUTIONAL Agree With Documented VS: Yes Exam Limitations: No Limitations General Appearance: WD/WN, No Apparent Distress - INFECTION CONTROL TRAVEL OUTSIDE OF THE [place] IN LAST 30 DAYS: No - HEENT HEENT: Atraumatic - NECK Neck: Supple - RESPIRATORY Respiratory: No Respiratory Distress - CARDIOVASCULAR Cardiovascular: Regular Rate - MUSCULOSKELETAL/EXTREMETIES Musculoskeletal/Extremeties: MAEW, FROM, Tender - NEURO Level of Consciousness: Awake, Alert, Appropriate - DERM Integumentary: Warm, Dry, Laceration - 15mm vertical laceration to dorsal proximal left foot, no active bleeding, good pedal pulse, good cap refill Course - Re-evaluation Re-evalutation: 04/25/18 Patient sutures placed. She tolerated procedure well. She was instructed on the importance of follow-up for any signs of infection. She was also instructed on return for suture removal. She verbalized understanding to all instructions. Dictation of this chart was performed using voice recognition software; therefore, there may be some unintended grammatical errors. - Vital Signs Vital signs: Temp Pulse Resp BP Pulse Ox 97.7 F 95 18 106/69 100 04/25/18 09:07 04/25/18 09:07 04/25/18 09:07 04/25/18 09:07 04/25/18 09:07 Procedures - Laceration/Wound Repair Left Foot Wound length (cm): 1.5 Wound's Depth, Shape: Superficial Laceration pre-procedure: Shur-Clens applied Anesthetic type: 1% Lidocaine Volume Anesthetic (mLs): 2 Wound explored: Clean Irrigated w/ Saline (mLs): 100 Wound Repaired With: Sutures Suture Size/Type: 5:0, Prolene Number of Sutures: 3 Layer Closure?: No Post-procedure wound care: Sterile dressing applied Post-procedure NV exam normal: Yes Complications: No Discharge - Discharge Clinical Impression: Laceration of left foot Qualifiers: Encounter type: initial encounter Qualified Code(s): S91.312A - Laceration without foreign body, left foot, initial encounter Condition: Stable Disposition: HOME, SELF-CARE Instructions: Laceration Care ([facility]), Soap Cleansing ([facility]), Tetanus Immunization Given ([facility]) Additional Instructions: *You have been treated for a laceration to your left foot *Monitor the site for signs of infection such as increasing pain, redness, swelling, warmth *keep the area clean *Follow up here in 7-10 days to remove sutures *Return to ED for signs of infection, worsening condition, changes, needs
== END 2018-04-25 10:00 | disposition home or self-care (01) ==
LOC: ER 09:00
DX: S91.312A Laceration without foreign body, left foot, initial encounter (principal); W20.8XXA Other cause of strike by thrown, projected or falling object, initial encounter; Y92.511 Restaurant or cafe as the place of occurrence of the external cause; Y99.0 Civilian activity done for income or pay
CPT/HCPCS: 90471; 90715; 99282

== ENCOUNTER 2018-05-02 12:07 | Emergency (ER) | payer SELFPAY ==
[2018-05-02 12:15] VITALS: BP 106/72
--- NOTE | 2018-05-02 13:28 | ER Document Report ---
ED Suture/Wound Recheck - General Chief Complaint: Suture Removal Stated Complaint: SUTURE REMOVAL/LEFT FOOT Time Seen by Provider: 05/02/18 13:06 Mode of Arrival: Ambulatory Information source: Patient Notes: 47-year-old female presented to ED for suture removal from her foot. There is no redness no drainage or inflammation to the foot. There is no pain to the foot. Patient states she has been back to work. TRAVEL OUTSIDE OF THE [place] IN LAST 30 DAYS: No - HPI Previous ED treatment: Laceration repair Quality of pain: No pain Severity: None Pain Level: Denies Context: Injury Symptoms since procedure: No complaints Exacerbated by: Denies Relieved by: Denies - Related Data Allergies/Adverse Reactions: No Known Allergies Allergy (Verified 05/02/18 12:08) Past Medical History - General Information source: Patient - Social History Smoking Status: Never Smoker Frequency of alcohol use: None Drug Abuse: None Occupation: [employer] Lives with: Family Family History: Reviewed & Not Pertinent Patient has suicidal ideation: No Patient has homicidal ideation: No - Past Medical History Cardiac Medical History: Reports: None Pulmonary Medical History: Reports: None EENT Medical History: Reports: None Neurological Medical History: Reports: None Endocrine Medical History: Reports: None Renal/ Medical History: Reports: None Malignancy Medical History: Reports: None GI Medical History: Reports: Hx Gastroesophageal Reflux Disease Musculoskeletal Medical History: Reports None Skin Medical History: Reports None Psychiatric Medical History: Reports: None Traumatic Medical History: Reports: None Infectious Medical History: Reports: None Past Surgical History: Reports: Hx Tubal Ligation - Immunizations Hx Diphtheria, Pertussis, Tetanus Vaccination: Yes Review of Systems - Review of Systems Constitutional: No symptoms reported EENT: No symptoms reported Cardiovascular: No symptoms reported Respiratory: No symptoms reported Gastrointestinal: No symptoms reported Genitourinary: No symptoms reported Female Genitourinary: No symptoms reported Musculoskeletal: No symptoms reported Skin: Other - Needs sutures removed from left foot Hematologic/Lymphatic: No symptoms reported Neurological/Psychological: No symptoms reported Physical Exam - Vital signs Vitals: Temp Pulse Resp BP Pulse Ox 98.5 F 61 15 106/72 100 05/02/18 12:13 05/02/18 12:13 05/02/18 12:13 05/02/18 12:13 05/02/18 12:13 Interpretation: Normal - General General appearance: Appears well, Alert - HEENT Head: Normocephalic, Atraumatic Eyes: Normal Pupils: PERRL - Respiratory Respiratory status: No respiratory distress Chest status: Nontender Breath sounds: Normal Chest palpation: Normal - Cardiovascular Rhythm: Regular Heart sounds: Normal auscultation Murmur: No - Abdominal Inspection: Normal Distension: No distension Bowel sounds: Normal Tenderness: Nontender Organomegaly: No organomegaly - Back Back: Normal, Nontender - Extremities General upper extremity: Normal inspection, Nontender, Normal color, Normal ROM, Normal temperature General lower extremity: Normal inspection, Nontender, Normal color, Normal ROM, Normal temperature, Normal weight bearing. No: Tre's sign - Neurological Neuro grossly intact: Yes Cognition: Normal Orientation: AAOx4 Mcdonald Coma Scale Eye Opening: Spontaneous Baljinder Coma Scale Verbal: Oriented Mcdonald Coma Scale Motor: Obeys Commands Baljinder Coma Scale Total: 15 Speech: Normal Motor strength normal: LUE, RUE, LLE, RLE Sensory: Normal - Psychological Associated symptoms: Normal affect, Normal mood - Skin Skin Temperature: Warm Skin Moisture: Dry Skin Color: Normal Skin irregularity: Laceration - Laceration well approximated well granulated no redness no swelling no pain no drainage sutures were removed Course - Re-evaluation Re-evalutation: 05/02/18 22:34 Sutures were removed with no difficulty. Steri-Strips were applied as patient states that she was afraid to the right palpable when she walked. Patient was given instructions on care of Steri-Strips. Patient was able to verbalize understanding and agreement with treatment plan and patient was discharged home. - Vital Signs Vital signs: Temp Pulse Resp BP Pulse Ox 98.5 F 61 15 106/72 100 05/02/18 12:13 05/02/18 12:13 05/02/18 12:13 05/02/18 12:13 05/02/18 12:13 Discharge - Discharge Clinical Impression: Visit for suture removal Condition: Stable Disposition: HOME, SELF-CARE Instructions: Family Physicians / Practices, Suture Removal Additional Instructions: Care of Steri-Strip Closure Your cut has been closed up with a special surgical tape. For this type of cut, it can replace stitches. You must protect the wound just as you would with stitches, however. For the first few days, keep the wound area completely dry. This also means you should avoid activity which makes you sweat. Do not move the area if motion stretches or wrinkles the strips. Don't allow the area to be bumped -- if bleeding occurs, the blood can make the strips loosen. The strips are somewhat waterproof. After a few days, the physician may allow you to shower. Be sure to ask if it's OK. Do not remove the tape until it peels off by itself. At that time, the wound should be healed. Acetaminophen Acetaminophen may be taken for pain relief or fever control. It's much safer than aspirin, offering a wider range of "safe" dosages. It is safe during . Some brand names are Tylenol, Panadol, Datril, Anacin 3, Tempra, and Liquiprin. Acetaminophen can be repeated every four hours. The following are maximum recommended dosages: WEIGHT Dose Drops Elixir Chewable(80mg) (LBS.) drprs=droppers tsp=teaspoon 6 40 mg .4 ml (1/2) 6-11 80 mg .8 ml (full) 1/2 tsp 1 tab 12-16 120 mg 1 1/2 drprs 3/4 tsp 1 1/2 tabs 17-23 160 mg 2 drprs 1 tsp 2 tabs 24-30 240 mg 3 drprs 1 1/2 tsp 3 tabs 30-35 320 mg 2 tsp 4 tabs 36-41 360 mg 2 1/4 tsp 4 1/2 tabs 42-47 400 mg 2 1/2 tsp 5 tabs 48-53 480 mg 3 tsp 6 tabs 54-59 520 mg 3 1/4 tsp 6 1/2 tabs 60-64 560 mg 3 1/2 tsp 7 tabs 65-70 600 mg 3 3/4 tsp 7 1/2 tabs 71-76 640 mg 4 tsp 8 tabs 77-82 720 mg 4 1/2 tsp 9 tabs 83-88 800 mg 5 tsp 10 tabs >89 pounds or adults 650 mg to 900 mg Acetaminophen can be repeated every four hours. Maximum daily dose not to exceed 4000 mg. These maximum recommended dosages are slightly higher than the dosages written on the product container, but these dosages are very safe and well below the toxic dosage for acetaminophen. Ibuprofen Ibuprofen is an excellent, safe drug for pain control. In addition, it has potent antiinflammatory effects which are beneficial, especially in the treatment of injuries, arthritis, or tendonitis. It's best to take ibuprofen with food. Persons with ulcer disease or allergy to aspirin should notify their physician of this before taking ibuprofen. Take the medication exactly as prescribed. Don't take additional doses unless instructed to do so by your doctor. If you develop wheezing, shortness of breath, hives, faintness, stomach pain, vomiting, or dark black stools, return for re-evaluation at once. FOLLOW-UP CARE: If you have been referred to a physician for follow-up care, call the physicians office for an appointment as you were instructed or within the next two days. If you experience worsening or a significant change in your symptoms, notify the physician immediately or return to the Emergency Department at any time for re-evaluation. Forms: Return to Work
== END 2018-05-02 13:32 | disposition home or self-care (01) ==
LOC: ER 12:07
DX: S91.312D Laceration without foreign body, left foot, subsequent encounter (principal); X58.XXXD Exposure to other specified factors, subsequent encounter

== ENCOUNTER 2018-05-30 09:36 | Emergency (ER) | payer OTHER ==
[2018-05-30 09:46] VITALS: BP 118/67
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
== END 2018-05-30 10:18 | disposition home or self-care (01) ==
LOC: ER 09:36
DX: R42 Dizziness and giddiness (principal); V89.2XXA Person injured in unspecified motor-vehicle accident, traffic, initial encounter; Z98.51 Tubal ligation status
CPT/HCPCS: 99283

== ENCOUNTER 2018-08-08 07:21 | Emergency (ER) | payer OTHER ==
[2018-08-08 07:33] VITALS: BP 106/64
--- NOTE | 2018-08-08 08:39 | ER Document Report ---
HPI - HPI Time Seen by Provider: 08/08/18 08:14 Pain Level: 0 Notes: Patient is a 48-year-old female with no significant past medical history who presents emergency department complaining of dry nonproductive cough and starting to lose her voice over the past week. She also has some nasal congestion and discharge. She is otherwise eating and drinking without difficulty. She is urinating normally. She is tried some [id number] meds with minimal relief. Denies drug allergies. No other concerns or complaints at this time. Denies any headache, fever, neck pain, sore throat, chest pain, palpitations, syncope, shortness of breath, wheeze, dyspnea, abdominal pain, nausea/vomiting/diarrhea, urinary retention, dysuria, hematuria, or rash. - ROS Systems Reviewed and Negative: Yes All other systems reviewed and negative - CONSTITUTIONAL Constitutional: DENIES: Fever, Chills - EENT EENT: REPORTS: Sore Throat - RESPIRATORY Respiratory: REPORTS: Coughing - REPRODUCTIVE Reproductive: DENIES: : Past Medical History - Social History Smoking Status: Never Smoker Frequency of alcohol use: None Drug Abuse: None Family History: Reviewed & Not Pertinent Patient has suicidal ideation: No Patient has homicidal ideation: No - Past Medical History Cardiac Medical History: Pulmonary Medical History: Endocrine Medical History: Renal/ Medical History: Denies: Hx Peritoneal Dialysis GI Medical History: Reports: Hx Gastroesophageal Reflux Disease Past Surgical History: Reports: Hx Tubal Ligation - Immunizations Hx Diphtheria, Pertussis, Tetanus Vaccination: Yes Vertical Provider Document - CONSTITUTIONAL Agree With Documented VS: Yes Notes: PHYSICAL EXAMINATION: GENERAL: Well-appearing, well-nourished and in no acute distress. A&Ox4. Answers questions appropriately. Moves comfortably w/o notable distress HEAD: Atraumatic, normocephalic. EYES: Pupils equal round and reactive to light, extraocular movements intact, sclera anicteric, conjunctiva are normal. ENT: EAC clear b/l. TM's intact b/l without erythema, fluid, or perforation. Nares patent and with clear discharge. oropharynx no erythema without exudates. No tonsilar hypertrophy without erythema or exudate. No palatine shift. Uvula midline. No tongue protrusion. No drooling, or airway compromise. Moist mucous membranes. No sinus tenderness. NECK: Normal range of motion, supple without lymphadenopathy. No rigidity/meningismus. LUNGS: Breath sounds clear to auscultation bilaterally and equal. No wheezes rales or rhonchi. No retractions HEART: Regular rate and rhythm without murmurs, rubs, gallops. NEUROLOGICAL: Normal speech, normal gait. PSYCH: Normal mood, normal affect. SKIN: Warm, Dry, normal turgor, no rashes or lesions noted. - INFECTION CONTROL TRAVEL OUTSIDE OF THE [place] IN LAST 30 DAYS: No Course - Re-evaluation Re-evalutation: 08/08/18 Patient is an afebrile, well-hydrated, 22-year-old female who presents to the ED with acute URI/laryngitis, suspect viral. Vitals are acceptable. PE is otherwise unremarkable. CXR unremarkable. No other labs or imaging warranted at this time based on H&P. Patient has no significant cardiopulmonary or immunocompromised medical conditions. Patient's lungs are clear to auscultation bilaterally without tachycardia, hypoxia, or tachypnea. Patient is tolerating p.o. without any difficulties. Low suspicion for any meningitis, sepsis, peritonsillar/pharyngeal abscess, respiratory compromise, severe dehydration, or other emergent systemic condition at this time. Patient is aware this condition can change from initial presentation and she needs to monitor symptoms closely. Conservative measures otherwise for symptoms. Recheck with your PCM in 3-5 days. Return to the ED with any worsening/concerning symptoms otherwise as reviewed in discharge. Patient is in agreement. - Vital Signs Vital signs: Temp Pulse Resp BP Pulse Ox 97.5 F 88 20 106/64 100 08/08/18 07:27 08/08/18 07:27 08/08/18 07:27 08/08/18 07:27 08/08/18 07:27 Discharge - Discharge Clinical Impression: Acute URI Condition: Stable Disposition: HOME, SELF-CARE Instructions: Upper Respiratory Illness ([facility]) Additional Instructions: Maintain adequate fluid intake Take meds as directed tylenol/ibuprofen as needed over the counter cold medication as needed for symptoms Humidified air may help Wash your hands regularly Wear a mask when coughing F/u: with your PCM in 3-5 days for a recheck Return to the ED with any fever, worsening pain, chest pain, palpitations, sy ncope, worsening LUNA, neck pain/stiffness, shortness of breath, wheezing, drooling, trouble swallowing/breathing, abdominal pain, n/v/d, rash, or worsening/concerning symptoms otherwise. Prescriptions: Benzonatate [Tessalon Perle 100 mg Capsule] 100 mg PO Q8HP PRN #15 cap PRN Reason: Prednisone [Deltasone 10 mg Tablet] 10 mg PO DAILY #18 tablet Referrals: [facility] [Provider Group] - Follow up as needed
--- NOTE | 2018-08-08 08:57 | RADIOLOGY REPORT (SQ) ---
EXAM DESCRIPTION: CHEST 2 VIEWS COMPLETED DATE/TIME: 08/08/2018 8:38 am REASON FOR STUDY: cough COMPARISON: 07/03/2017 EXAM PARAMETERS: NUMBER OF VIEWS: two views TECHNIQUE: Digital Frontal and Lateral radiographic views of the chest acquired. RADIATION DOSE: NA LIMITATIONS: none FINDINGS: LUNGS AND PLEURA: No opacities, masses or pneumothorax. No pleural effusion. MEDIASTINUM AND HILAR STRUCTURES: No masses or contour abnormalities. HEART AND VASCULAR STRUCTURES: Heart normal size. No evidence for failure. BONES: No acute findings. HARDWARE: None in the chest. OTHER: No other significant finding. IMPRESSION: 1. No significant interval changes since the prior examination dated 07/03/2017. No acu te findings. TECHNICAL DOCUMENTATION: JOB ID: [id number] [employer]- All Rights Reserved Reading location - IP/workstation name: [email or web address]
== END 2018-08-08 09:09 | disposition home or self-care (01) ==
LOC: ER 07:21
DX: J06.9 Acute upper respiratory infection, unspecified (principal); R05 Cough; R09.81 Nasal congestion; R09.89 Other specified symptoms and signs involving the circulatory and respiratory systems; J02.9 Acute pharyngitis, unspecified
CPT/HCPCS: 71046; 99283

== ENCOUNTER 2018-09-01 21:05 | Emergency (ER) | payer OTHER ==
[2018-09-01] MEDS ORDERED: TETRACAINE HCL 0.5% OPH SOLN 4 ML OD ONE (23:51)
[2018-09-02] MEDS ORDERED: POLYMYXIN B SULFATE/TMP OPH SOLN (10 ML/ER DISP) OD PRN (00:46)
--- NOTE | 2018-09-02 00:48 | ER Document Report ---
ED General - General Chief Complaint: Foreign Body in Eye Stated Complaint: WC, EYE PAIN Time Seen by Provider: 09/01/18 23:50 Notes: Patient is a 48-year-old female without chronic medical problems presents with concerns of a foreign body in her right eye. Patient states that she was working today, dropped a glass plate and felt some of the glass come up onto her face. She states that since that time she has had a dull, scratching, irrit ating discomfort to the right eye. Mild in nature. Nothing improves or worsens the symptoms. No history of similar symptoms in the past. Does not use any form of contact lenses. Does not see her doctor regarding today's concerns. Denies any injury to any other location. TRAVEL OUTSIDE OF THE [place] IN LAST 30 DAYS: No - Related Data Allergies/Adverse Reactions: No Known Allergies Allergy (Verified 08/08/18 07:22) Past Medical History - General Information source: Patient - Social History Smoking Status: Never Smoker Frequency of alcohol use: None Drug Abuse: None Family History: Reviewed & Not Pertinent Patient has suicidal ideation: No Patient has homicidal ideation: No - Past Medical History Cardiac Medical History: Pulmonary Medical History: Endocrine Medical History: Renal/ Medical History: Denies: Hx Peritoneal Dialysis GI Medical History: Reports: Hx Gastroesophageal Reflux Disease Past Surgical History: Reports: Hx Tubal Ligation - Immunizations Hx Diphtheria, Pertussis, Tetanus Vaccination: Yes Review of Systems - Review of Systems Notes: Constitutional: Negative for fever. HENT: Negative for sore throat. Eyes: Positive for right eye discomfort Cardiovascular: Negative for chest pain. Respiratory: Negative for shortness of breath. Gastrointestinal: Negative for abdominal pain, vomiting or diarrhea. Genitourinary: Negative for dysuria. Musculoskeletal: Negative for back pain. Skin: Negative for rash. Neurological: Negative for headaches, weakness or numbness. 10 point ROS negative except as marked above and in HPI. Physical Exam - Vital signs Vitals: Temp Pulse Resp BP Pulse Ox 98.4 F 66 15 106/70 100 09/01/18 21:25 09/01/18 21:25 09/01/18 21:25 09/01/18 21:25 09/01/18 21:25 Interpretation: Normal Notes: PHYSICAL EXAMINATION: PHYSICAL EXAMINATION: GENERAL: Well-appearing, well-nourished and in no acute distress. HEAD: Atraumatic, normocephalic. EYES: Pupils equal round and reactive to light, extraocular movements intact, Fluorescein staining was undertaken, portillo lamp exam reveals a very small corneal abrasion on the right inferior aspect of the cornea without any evidence of foreign body. Eyelid flipped, no foreign body noted. No significant conjunctival injection. ENT: Moist mucous membranes. NECK: Normal range of motion LUNGS: Normal work of breathing HEART: 2+ radial pulses bilaterally EXTREMITIES: no pitting or edema. No cyanosis. NEUROLOGICAL: No focal neurological deficits. Moves all extremities spontaneously and on command. PSYCH: Normal mood, normal affect. SKIN: Warm, Dry, normal turgor, no rashes or lesions noted. Course - Re-evaluation Re-evalutation: 09/02/18 00:47 Patient presents with concerns of a possible foreign body in her right eye. Fluorescein staining was undertaken, portillo lamp exam reveals a very small corneal abrasion on the right inferior aspect of the cornea without any evidence of foreign body. Eyelid flipped, no foreign body noted. Extraocular motions intact. No significant conjunctival injection. Patient is otherwise very well in appearance, no additional injuries or concerns. Has been started on Polytrim drops. At this time will discharge with return precautions and follow-up recommendations. Verbal discharge instructions given a the bedside and opportunity for questions given. Medication warnings reviewed. Patient is in agreement with this plan and has verbalized understanding of return precautions and the need for primary care follow-up in the next 24-72 hours. 09/02/18 03:21 - Vital Signs Vital signs: Temp Pulse Resp BP Pulse Ox 98.5 F 64 18 112/62 100 09/02/18 00:58 09/02/18 00:58 09/02/18 00:58 09/02/18 00:58 09/02/18 00:58 Discharge - Discharge Clinical Impression: Corneal abrasion Qualifiers: Encounter type: initial encounter Laterality: right Qualified Code(s): S05.01XA - Injury of conjunctiva and corneal abrasion without foreign body, right eye, initial encounter Condition: Good Disposition: HOME, SELF-CARE Additional Instructions: You have a corneal abrasion. This should improve in the next several days. You should apply the eye drops to the affected eye 5 times daily. Follow-up with your eye doctor at your earliest ability. Return if you have decreased vision, worsening pain, increased drainage from the eye, you notice redness or puffiness around the eye, you develop a fever greater than 101F, or you have any other symptoms that are concerning to you.
[2018-09-02 00:59] VITALS: BP 112/62
== END 2018-09-02 00:59 | disposition home or self-care (01) ==
LOC: ER 21:05
DX: S05.01XA Injury of conjunctiva and corneal abrasion without foreign body, right eye, initial encounter (principal); W20.8XXA Other cause of strike by thrown, projected or falling object, initial encounter; Y99.0 Civilian activity done for income or pay
CPT/HCPCS: 99283; J3490 ×2

== ENCOUNTER 2018-09-17 21:55 | Emergency (ER) | payer SELFPAY ==
[2018-09-17] MEDS ORDERED: MORPHINE SULFATE 10 MG/ML INJ IV PRN (23:31)
[2018-09-17] MEDS ORDERED: ONDANSETRON HCL INJ/PF 4 MG/2 ML SDV IV ONE (23:31)
[2018-09-18 00:40] LABS: ABSOLUTE EOSINOPHILS # (AUTO) 0.1 10^3/uL (0.0-0.6); ABSOLUTE LYMPHOCYTES (AUTO) 4.5 10^3/uL (0.5-4.7); ABSOLUTE NEUT (AUTO) 4.8 10^3/uL (1.7-8.2); BASOPHILS % (AUTO) 0.3 % (0-2); EOSINOPHILS % (AUTO) 0.9 % (0-6); HEMATOCRIT 41.3 % (36.0-47.0); HEMOGLOBIN 13.5 g/dL (12.0-15.5); LYMPHOCYTES % (AUTO) 43.6 % (13-45); MEAN CORPUSCULAR HEMOGLOBIN 29.3 pg (27.0-33.4); MEAN CORPUSCULAR HGB CONC 32.8 g/dL (32.0-36.0); MEAN CORPUSCULAR VOLUME 89 fl (80-97); MONOCYTES % (AUTO) 9.2 % (3-13); PLATELET COUNT 227 10^3/uL (150-450); RED BLOOD COUNT 4.62 10^6/uL (3.72-5.28); TOTAL CELLS COUNTED % (AUTO) 100 %; WHITE BLOOD COUNT 10.4 10^3/uL (4.0-10.5)
--- NOTE | 2018-09-18 00:56 | RADIOLOGY REPORT (SQ) ---
EXAM DESCRIPTION: US ABDOMEN LIMITED COMPLETED DATE/TME: 09/17/2018 23:30 CLINICAL HISTORY: 48 years, Female, ruq ab pain COMPARISON: None. TECHNIQUE: Grayscale and color images of the abdomen were obtained LIMITATIONS: None. FINDINGS: The visualized portions of the pancreas and abdominal aorta appear unremarkable. The liver is normal in size and shape and echotexture. The liver measures 12.4 cm. Hemangiomas in the right hepatic lobe measure 2.9 x 2.3 x 2.8 cm and 1.3 x 1.2 x 1.0 cm. The main portal vein demonstrates normal hepatopedal flow. No evidence of cholelithiasis, wall thickening, or pericholecystic fluid. No sonographic Celaya sign was elicited. The common bile duct is normal in caliber measuring up to 3 mm in diameter. The right kidney measures 9.5 x 3.9 x 4.6 cm. No hydronephrosis. IMPRESSION: No evidence of cholelithiasis or acute cholecystitis. copyright 2010 [employer]- All Rights Reserved
[2018-09-18 00:57] VITALS: BP 111/46
[2018-09-18 01:00] LABS: ALANINE AMINOTRANSFERASE 21 U/L (9-52); ALBUMIN 4.6 g/dL (3.5-5.0); ALKALINE PHOSPHATASE 60 U/L (38-126); ANION GAP 12 (5-19); ASPARTATE AMINO TRANSFERASE 18 U/L (14-36); BILIRUBIN,DIRECT 0.2 mg/dL (0.0-0.4); BILIRUBIN,TOTAL 0.4 mg/dL (0.2-1.3); BLOOD UREA NITROGEN 20 mg/dL (7-20); CALCIUM 9.5 mg/dL (8.4-10.2); CARBON DIOXIDE 28 mmol/L (22-30); CHLORIDE 104 mmol/L (98-107); GLUCOSE 98 mg/dL (75-110); LIPASE 152.9 U/L (23-300); POTASSIUM 4.4 mmol/L (3.6-5.0); SODIUM 143.5 mmol/L (137-145); TOTAL PROTEIN 7.9 g/dL (6.3-8.2)
[2018-09-18] MEDS ORDERED: LIDOCAINE 2% VISCOUS SOLN 20 ML UDCUP PO ONE (01:31)
[2018-09-18] MEDS ORDERED: MAG HYDROX/AL HYDROX/SIMETH SUSP 30 ML UDCUP PO ONE (01:31)
[2018-09-18] MEDS ORDERED: METOCLOPRAMIDE HCL ORAL SOLN 10 MG/10 ML UDCUP PO ONE (01:31)
[2018-09-18] MEDS ORDERED: SUCRALFATE 1 GM TABLET PO ONE (01:31)
[2018-09-18] MEDS ORDERED: FAMOTIDINE 20 MG TABLET PO ONE (01:31)
--- NOTE | 2018-09-18 01:32 | ER Document Report ---
ED General - General Chief Complaint: Upper Abdominal Pain Stated Complaint: ABDOMINAL PAIN Time Seen by Provider: 09/17/18 23:30 Notes: Patient is a 48-year-old female without chronic medical problems who presents with 36 hours of right upper abdominal pain. States the pain started gradually yesterday and since that time has diminished somewhat. Is currently regarded as a mild to moderate, throbbing, burning, upper abdominal discomfort. Nothing seems to improve or worsen his discomfort. Notes associated nausea but no vomiting. Denies shortness of breath or pleuritic pain. No chest pain. No history of DVT or pulmonary embolus. No use of supplemental estrogen. Has not seen her primary care doctor regarding today's concerns. TRAVEL OUTSIDE OF THE [place] IN LAST 30 DAYS: No - Related Data Allergies/Adverse Reactions: No Known Allergies Allergy (Verified 08/08/18 07:22) Past Medical History - General Information source: Patient - Social History Smoking Status: Never Smoker Frequency of alcohol use: None Drug Abuse: None Family History: Reviewed & Not Pertinent Patient has suicidal ideation: No Patient has homicidal ideation: No - Past Medical History Cardiac Medical History: Pulmonary Medical History: Endocrine Medical History: Renal/ Medical History: Denies: Hx Peritoneal Dialysis GI Medical History: Reports: Hx Gastroesophageal Reflux Disease Past Surgical History: Reports: Hx Tubal Ligation - Immunizations Hx Diphtheria, Pertussis, Tetanus Vaccination: Yes Review of Systems - Review of Systems Notes: Constitutional: Negative for fever. HENT: Negative for sore throat. Eyes: Negative for visual changes. Cardiovascular: Negative for chest pain. Respiratory: Negative for shortness of breath. Gastrointestinal: Positive for upper abdominal pain and nausea Genitourinary: Negative for dysuria. Musculoskeletal: Negative for back pain. Skin: Negative for rash. Neurological: Negative for headaches, weakness or numbness. 10 point ROS negative except as marked above and in HPI. Physical Exam - Vital signs Vitals: Temp Pulse Resp BP 97.7 F 66 18 99/57 L 09/17/18 22:07 09/17/18 22:07 09/17/18 22:07 09/17/18 22:07 Interpretation: Normal Notes: PHYSICAL EXAMINATION: GENERAL: Well-appearing, well-nourished and in no acute distress. HEAD: Atraumatic, normocephalic. EYES: Pupils equal round and reactive to light, extraocular movements intact, sclera anicteric, conjunctiva are normal. ENT: nares patent, oropharynx clear without exudates. Moist mucous membranes. NECK: Normal range of motion, supple without lymphadenopathy LUNGS: Breath sounds clear to auscultation bilaterally and equal. No wheezes rales or rhonchi. HEART: Regular rate and rhythm without murmurs ABDOMEN: Soft, nontender, normoactive bowel sounds. No guarding, no rebound. No masses appreciated. EXTREMITIES: Normal range of motion, no pitting or edema. No cyanosis. NEUROLOGICAL: No focal neurological deficits. Moves all extremities spontaneously and on command. PSYCH: Normal mood, normal affect. SKIN: Warm, Dry, normal turgor, no rashes or lesions noted. Course - Re-evaluation Re-evalutation: 09/18/18 01:31 Patient presents with epigastric abdominal pain with associated nausea. Patient has no focal abdominal tenderness on examination. Right upper quadrant ultrasound does not demonstrate any evidence of acute cholecystitis or cholelithiasis. Lipase is normal. No LFT changes. Based on history and exam, I do not suspect ACS, pulmonary embolus, SBO, mesenteric ischemia, acute pancreatitis, biliary pathology, or an abdominal aortic dissection. PERC criteria negative, do not likely suspect PE. At this time will discharge with return precautions and follow-up recommendations. Verbal discharge instructions given a the bedside and opportunity for questions given. Medication warnings reviewed. Patient is in agreement with this plan and has verbalized understanding of return precautions and the need for primary care follow-up in the next 24-72 hours. 09/18/18 04:52 - Vital Signs Vital signs: Temp Pulse Resp BP Pulse Ox 97.7 F 66 18 111/46 L 100 09/17/18 22:07 09/17/18 22:07 09/17/18 22:07 09/18/18 00:45 09/18/18 00:46 - Laboratory Result Diagrams: 09/18/18 00:29 09/18/18 00:29 - Diagnostic Test Radiology reviewed: Reports reviewed Discharge - Discharge Clinical Impression: Upper abdominal pain, Nausea Condition: Good Disposition: HOME, SELF-CARE Additional Instructions: Your symptoms appear to be most consistent with stomach or upper intestinal irritation. Please begin taking famotidine 40 mg in the morning and 40 mg at night. Take Carafate prior to meals. You may also take medicine such as Pepto- Bismol or Tums to assist with your pain. Please return to emergency department immediately if you have worsening of your pain, shortness of breath, vomiting, become unable to exert yourself due to pain or difficulty breathing, you pass out, or have any pain that radiates into your arms, jaw, or back. Please also return if you have any additional symptoms that are concerning to you. As we have discussed, the most important thing is lifestyle changes. You need to avoid smoking, sodas, tea, coffee, alcohol, spicy foods, and acidic foods such as citrus fruits, tomato based products, berries, and most fruit juices. Prescriptions: Famotidine 40 mg PO BID #60 tablet Sucralfate [Carafate 1 gm Tablet] 1 gm PO ACHS #120 tablet
== END 2018-09-18 01:46 | disposition home or self-care (01) ==
LOC: ER 21:55
DX: R10.10 Upper abdominal pain, unspecified (principal); R11.0 Nausea
CPT/HCPCS: 36415; 76705; 80053; 83690; 84703; 85025; 99284